=== PATIENT | male | born 1990 | race American Indian/Alaskan Native ===

== ENCOUNTER 2017-03-01 14:31 | Emergency (ER) | payer OTHER ==
[2017-03-01] MEDS ORDERED: Naproxen 550 mg Tab PO STA (15:03)
[2017-03-01] MEDS ORDERED: Albuterol 0.083% Inhal Sol (2.5 mg/3 mL) UD IH STA (15:03)
[2017-03-01] MEDS ORDERED: Albuterol 0.083% Inhal Sol (2.5 mg/3 mL) UD ONE (15:08)
[2017-03-01] MEDS ORDERED: Naproxen 550 mg Tab PO ONE (15:08)
--- NOTE | 2017-03-01 16:08 | C.PDOC ---
History Of Present Illness 26 year old patient presents to the ED complaining of intermittent fever, non- productive cough, runny nose and sore throat. He notes he has sick contacts at home with similar symptoms. Patient also complains of occasional shortness of breath. He denies chest pain, abdominal pain, nausea, vomiting, diarrhea, dysuria/hematuria. Time Seen by Provider: 03/01/17 14:40 Chief Complaint (Nursing): Fever History Per: Patient History/Exam Limitations: no limitations Onset/Duration Of Symptoms: Intermittent Episodes Current Symptoms Are (Timing): Still Present Location Of Pain: Throat Sick Contacts (Context): Family Member(s) Associated Symptoms: Fever, Sore Throat, Cough Ear Symptoms: Bilateral: None Severity: Mild Past Medical History Reviewed: Historical Data, Nursing Documentation, Vital Signs Vital Signs: Last Vital Signs Temp 99.7 F H 03/01/17 16:09 Pulse 116 H 03/01/17 16:09 Resp 20 03/01/17 16:09 BP 135/84 03/01/17 16:09 Pulse Ox 97 03/01/17 17:26 - Medical History PMH: No Chronic Diseases Family History: States: No Known Family Hx - Social History Hx Alcohol Use: No Hx Substance Use: No - Immunization History Hx Tetanus Toxoid Vaccination: No Hx Influenza Vaccination: No Hx Pneumococcal Vaccination: No Review Of Systems Except As Marked, All Systems Reviewed And Found Negative. Constitutional: Positive for: Fever ENT: Positive for: Nose Congestion, Throat Pain Cardiovascular: Negative for: Chest Pain, Palpitations Respiratory: Positive for: Cough (non-productive), Shortness of Breath ( occasional ) Gastrointestinal: Negative for: Nausea, Vomiting, Abdominal Pain, Diarrhea Skin: Negative for: Rash Physical Exam - Physical Exam Appears: Well, Non-toxic, No Acute Distress Skin: Warm, Dry Head: Normacephalic Eye(s): bilateral: Normal Inspection Ear(s): Bilateral: Normal Oral Mucosa: Moist Throat: Erythema (mild pharyngeal), No Exudate, No Drooling Neck: Normal ROM, Supple, Other (NO MENINGISMUS) Chest: Symmetrical Cardiovascular: Rhythm Regular (mildly tachycardic) Respiratory: Normal Breath Sounds, No Rales, No Rhonchi, No Wheezing, Other ( speaking in complete sentences; decreased air entry B/L) Gastrointestinal/Abdominal: Normal Exam, Bowel Sounds, Soft, No Tenderness Back: Normal Inspection Extremity: Normal ROM Neurological/Psych: Oriented x3 Gait: Steady ED Course And Treatment O2 Sat by Pulse Oximetry: 97 (room air) Pulse Ox Interpretation: Normal Progress Note: Patient given PO naprosyn, PO tessalon and albuterol treatment. Reevaluation Time: 16:20 Reassessment Condition: Improved (On reassessment, patient is resting comfortably and states he feels better. On exam, he has good air entry B/L without wheezing or accessory muscle use. Poc 97-98% on RA, and fever has dropped appropriately. Patient comfortable being dicharged home, was given Rxs for albuterol inhaler, naprosyn and tessalon perles, and instructed to follow up with PMD/clinic in 1-2 days. He understands he should return to ED if symptoms worsen.) Disposition Counseled Patient/Family Regarding: Studies Performed, Diagnosis, Need For Followup, Rx Given - Disposition Referrals: [facility] at [facility] [Outside] Disposition: HOME/ ROUTINE Disposition Time: 16:20 Condition: STABLE Additional Instructions: FOLLOW UP WITH YOUR DOCTOR IN 1-2 DAYS USE MEDICATIONS DIRECTED RETURN TO EMERGENCY ROOM IF SYMPTOMS WORSEN Prescriptions: Albuterol HFA [Ventolin HFA 90 mcg/actuation (8 g)] 0.09 mg IH Q4 PRN #1 puff PRN Reason: Wheezing Benzonatate [Tessalon Perles] 100 mg PO BID PRN #15 sgl PRN Reason: Cough Naproxen [Naprosyn Tab] 375 mg PO BID PRN #20 tab PRN Reason: pain Instructions: Upper Respiratory Infection (ED), Viral Syndrome (ED) Print Language: SAUDI ARABIAN - POA Present On Arrival: None - Clinical Impression Clinical Impression: Upper respiratory infection, Acute bronchospasm - Scribe Statement The provider has reviewed the documentation as recorded by the Johnnyibkay Pandya Provider Attestation: All medical record entries made by the Scribe were at my direction and personally dictated by me. I have reviewed the chart and agree that the record accurately reflects my personal performance of the history, physical exam, medical decision making, and the department course for this patient. I have also personally directed, reviewed, and agree with the discharge instructions and disposition.
[2017-03-01 16:09] VITALS: BP 135/84; PULSE 116; RESP 20; TEMP 99.7
[2017-03-01 16:12] VITALS: O2SAT 97
== END 2017-03-01 16:27 | disposition home or self-care (01) ==
LOC: C.ER 14:31
DX: J06.9 Acute upper respiratory infection, unspecified (principal); J98.01 Acute bronchospasm

== ENCOUNTER 2017-11-02 16:54 | Emergency (ER) | payer SELFPAY ==
--- NOTE | 2017-11-02 17:24 | C.PDOC ---
History Of Present Illness Patient complains of pain started 30 minutes ago to left lower abdomen. He states the pain radiates into the groin and he took Tylenol prior to arrival. At time of onset pain it was 7/10 on pain scale and described as twisting pain. Upon arrival to ED pain has mostly resolved it is now almost completely gone. Patient denies any nausea, vomiting, dysuria, diarrhea, constipation. Time Seen by Provider: 11/02/17 17:08 Chief Complaint (Nursing): Abdominal Pain History Per: Patient History/Exam Limitations: no limitations Onset/Duration Of Symptoms: Mins (30), Sudden Onset Current Symptoms Are (Timing): Better Severity: Moderate Location Of Pain/Discomfort: LLQ Radiation Of Pain To:: Other (groin) Quality Of Discomfort: "Pain" Exacerbating Factors: None Alleviating Factors: OTC Meds Last Bowel Movement: Today Past Medical History Reviewed: Historical Data, Nursing Documentation, Vital Signs Vital Signs: Last Vital Signs Temp 97.7 F 11/02/17 17:00 Pulse 79 11/02/17 17:00 Resp 18 11/02/17 17:00 BP 124/81 11/02/17 17:00 Pulse Ox 100 11/02/17 18:28 - Medical History PMH: No Chronic Diseases Surgical History: No Surg Hx Family History: States: Unknown Family Hx - Social History Hx Alcohol Use: No Hx Substance Use: No - Immunization History Hx Tetanus Toxoid Vaccination: No Hx Influenza Vaccination: No Hx Pneumococcal Vaccination: No Review Of Systems Except As Marked, All Systems Reviewed And Found Negative. Gastrointestinal: Positive for: Abdominal Pain Physical Exam - Physical Exam Appears: Non-toxic, No Acute Distress Skin: Warm, Dry, No Diaphoretic, Other (erythematous macular rash and excoriation to left lower abdomen) Head: Atraumatic, Normacephalic Eye(s): bilateral: Normal Inspection, EOMI Nose: Normal Oral Mucosa: Moist Neck: Normal ROM Chest: Symmetrical Cardiovascular: Rhythm Regular, No Murmur Respiratory: Normal Breath Sounds, No Rhonchi, No Wheezing Gastrointestinal/Abdominal: Bowel Sounds, Soft, No Tenderness, No Mass, No Distention, No Guarding, No Hernia Back: Normal Inspection, No CVA Tenderness, No Vertebral Tenderness, No Paraspinal Tenderness Male Genital: Normal Inspection, No Testicular Tenderness, No Testicular Swelling, No Inguinal Tenderness, No Scrotal Swelling, Circumcised Extremity: Bilateral: Atraumatic, Normal Color And Temperature, Normal ROM Neurological/Psych: Oriented x3, Normal Speech Gait: Steady ED Course And Treatment - Laboratory Results Result Diagrams: 11/02/17 17:47 O2 Sat by Pulse Oximetry: 100 - CT Scan/US Testicular US Other Rad Studies (CT/US): Read By Radiologist, Radiology Report Reviewed CT/US Interpretation: Energy Consultant : Jesica Mejia MD. Approver2 : Report Date : 11/02/2017 18:24:21. My Comment : . HISTORY: left side pain onset 30 minutes. TECHNIQUE: Realtime sonography through the scrotum with color and doppler flow. COMPARISON: None Available. FINDINGS: RIGHT TESTICLE: Measures 4.3 x 2.2 x 3.1 cm. Homogeneous echotexture. Blood flow is demonstrated. RIGHT EPIDIDYMIS: Epididymal cyst measuring approximately 6 mm and 5 mm. LEFT TESTICLE: Measures 4.5 x 1.8 x 2.8 cm. Homogeneous echotexture. Blood flow is demonstrated. LEFT EPIDIDYMIS: There are two epididymal cysts measuring approximately 5 mm each. HYDROCELE: None. VARICOCELE: Left-sided varicocele. OTHER FINDINGS: None. IMPRESSION: Bilateral epididymal cysts. Left-sided varicocele. Medical Decision Making Medical Decision Making: Impression: LLQ pain radiates to groin Plan: * Labs * UA * US Progress: CBC shows no leukocytosis, bands or shift UA WNL US shows Bilateral epididymal cysts. Left-sided varicocele. On re-evaluation, patient reports feeling much better. He has no pain in abdomen or groin, area is soft. He has no fever and stable vital signs. I explained US results and provide copy of results. Advise follow up with PCP and urologist for further evaluation. Disposition Counseled Patient/Family Regarding: Studies Performed, Diagnosis, Need For Followup - Disposition Referrals: Kizzy Cristobal MD [Staff Provider] - [facility] [Outside] [facility] [Outside] Disposition: HOME/ ROUTINE Disposition Time: 18:50 Condition: STABLE Additional Instructions: Please follow up with your primary doctor or with urologist for further evaluation. Take Motrin or Tylenol for any pain. Return to the emergency department at any time if symptoms persist or worsen. Instructions: Varicocele (ED) Forms: [employer] (Macanese) - POA Present On Arrival: None - Clinical Impression Clinical Impression: Left varicocele, Epididymal cyst
[2017-11-02 17:40] LABS: URINE AMORPHOUS SEDIMENT RARE /ul (<OCC); URINE BILIRUBIN NEGATIVE (NEGATIVE); URINE BLOOD NEGATIVE (NEGATIVE); URINE CLARITY Hazy (Clear); URINE COLOR Yellow (YELLOW); URINE GLUCOSE (UA) NORMAL (Normal); URINE LEUKOCYTE ESTERASE NEG Leu/uL (Negative); URINE NITRATE NEGATIVE (NEGATIVE); URINE PROTEIN NEGATIVE (NEGATIVE); URINE UROBILINOGEN NORMAL mg/dL (0.2-1.0)
[2017-11-02 17:52] LABS: BASO % 0.3 % (0.0-2.0); EOS # 0.1 K/uL (0.0-0.7); EOS % 0.9 % (0.0-4.0); HEMOGLOBIN 14.9 g/dL (12.0-18.0); LYMPH % 12.4 % (20.0-40.0); MEAN CORPUSCULAR HEMOGLOBIN 26.3 pg (27.0-31.0); MEAN CORPUSCULAR HGB CONC 32.5 g/dL (33.0-37.0); MEAN PLATELET VOLUME 8.2 fL (7.2-11.7); MONO # 0.6 K/uL (0.0-0.8); MONO % 6.7 % (0.0-10.0); NEUT # 6.6 K/uL (1.8-7.0); NEUT % 79.7 % (50.0-75.0); NRBC % 0.1 % (0.0-2.0); RBC 5.64 Mil/uL (4.40-5.90); RED CELL DISTRIBUTION WIDTH 13.6 % (11.5-14.5); WHITE BLOOD COUNT 8.3 K/uL (4.8-10.8)
--- NOTE | 2017-11-02 18:25 | US ---
HISTORY: left side pain onset 30 minutes TECHNIQUE: Realtime sonography through the scrotum with color and doppler flow. COMPARISON: None Available. FINDINGS: RIGHT TESTICLE: Measures 4.3 x 2.2 x 3.1 cm. Homogeneous echotexture. Blood flow is demonstrated. RIGHT EPIDIDYMIS: Epididymal cyst measuring approximately 6 mm and 5 mm. LEFT TESTICLE: Measures 4.5 x 1.8 x 2.8 cm. Homogeneous echotexture. Blood flow is demonstrated. LEFT EPIDIDYMIS: There are two epididymal cysts measuring approximately 5 mm each. HYDROCELE: None. VARICOCELE: Left-sided varicocele. OTHER FINDINGS: None. IMPRESSION: Bilateral epididymal cysts. Left-sided varicocele.
[2017-11-02 18:49] LABS: ALB/GLOB RATIO 1.4 (1.0-2.1); ALBUMIN 4.3 g/dL (3.5-5.0); ALT/SGPT 56 U/L (21-72); AST/SGOT 29 U/L (17-59); BLOOD UREA NITROGEN 10 mg/dL (9-20); CALCIUM 8.6 mg/dl (8.6-10.4); GFR AFRICAN-AMERICAN > 60; GFR NON-AFRICAN AMERICAN > 60
[2017-11-02 18:57] VITALS: BP 114/74; PULSE 104; RESP 20; TEMP 98.5
[2017-11-02 22:18] VITALS: O2SAT 100
== END 2017-11-02 18:58 | disposition home or self-care (01) ==
LOC: C.ER 16:54
DX: I86.1 Scrotal varices (principal); N50.3 Cyst of epididymis

== ENCOUNTER 2018-03-25 23:18 | Emergency (ER) | payer SELFPAY ==
[2018-03-25 23:26] VITALS: RESP 14; O2SAT 99
[2018-03-25] MEDS ORDERED: Sodium Chloride 0.9% 1,000 ML IV ONE (23:37)
[2018-03-25] MEDS ORDERED: Sodium Chloride 0.9% 1,000 ML ONE (23:51)
[2018-03-26 00:02] LABS: EOS # 0.1 K/uL (0.0-0.7); EOS % 1.9 % (0.0-4.0); MEAN CORPUSCULAR HEMOGLOBIN 27.9 pg (27.0-31.0); MONO # 0.6 K/uL (0.0-0.8); NEUT # 3.8 K/uL (1.8-7.0); WHITE BLOOD COUNT 6.5 K/uL (4.8-10.8)
[2018-03-26 00:13] LABS: BASO % 0.3 % (0.0-2.0); HEMOGLOBIN 14.8 g/dL (12.0-18.0); LYMPH # 2.1 K/uL (1.0-4.3); LYMPH % 31.3 % (20.0-40.0); MEAN CELL VOLUME 80.3 fL (80.0-94.0); MEAN CORPUSCULAR HGB CONC 34.7 g/dL (33.0-37.0); MEAN PLATELET VOLUME 8.5 fL (7.2-11.7); MONO % 8.9 % (0.0-10.0); NEUT % 57.6 % (50.0-75.0); RBC 5.3 Mil/uL (4.40-5.90); RED CELL DISTRIBUTION WIDTH 13.3 % (11.5-14.5)
[2018-03-26 00:14] LABS: ALB/GLOB RATIO 1.4 (1.0-2.1); ALT/SGPT 25 U/L (21-72); AST/SGOT 21 U/L (17-59); BLOOD UREA NITROGEN 16 mg/dL (9-20); CALCIUM 8.8 mg/dl (8.6-10.4); GFR AFRICAN-AMERICAN > 60; GFR NON-AFRICAN AMERICAN > 60; LIPASE 61 U/L (23-300)
--- NOTE | 2018-03-26 00:47 | C.PDOC ---
History Of Present Illness <Gamaliel Sepulveda - Last Filed: 03/26/18 00:46> <Evelia Frank - Last Filed: 03/26/18 04:36> 27 year old male presents to the emergency department with complaints of left flank pain radiating to his groin for one hour [employer]. Patient denies urinary symptoms, nausea, vomiting, fever, chills, or testicular pain. (Evelia Frank) <Gamaliel Sepulveda - Last Filed: 03/26/18 00:46> History Per: Patient History/Exam Limitations: no limitations Onset/Duration Of Symptoms: Hrs Current Symptoms Are (Timing): Still Present Quality Of Discomfort: Sharp, "Pain" Associated Symptoms: denies: Fever, Chills, Nausea, Vomiting, Other (testicular pain) <Evelia Frank - Last Filed: 03/26/18 04:36> Time Seen by Provider: 03/25/18 23:36 Chief Complaint (Nursing): Male Genitourinary Past Medical History Family History: States: Unknown Family Hx - Social History Hx Alcohol Use: No Hx Substance Use: No - Immunization History Hx Tetanus Toxoid Vaccination: No Hx Influenza Vaccination: No Hx Pneumococcal Vaccination: No <Gamaliel Sepulveda M - Last Filed: 03/26/18 00:46> Reviewed: Historical Data, Nursing Documentation, Vital Signs - Medical History PMH: No Chronic Diseases <Evelia Frank - Last Filed: 03/26/18 04:36> Vital Signs: Last Vital Signs Temp 98 F 03/26/18 03:01 Pulse 80 03/26/18 03:01 Resp 14 03/26/18 03:01 BP 120/80 03/26/18 03:01 Pulse Ox 99 03/26/18 03:01 Review Of Systems Gastrointestinal: Positive for: Abdominal Pain Musculoskeletal: Positive for: Back Pain (flank pain) <Evelia Frank - Last Filed: 03/26/18 04:36> Physical Exam - Physical Exam Appears: Non-toxic, In Acute Distress Skin: Warm, Dry Head: Atraumatic, Normacephalic Eye(s): bilateral: Normal Inspection Oral Mucosa: Moist Neck: Supple Chest: Symmetrical Cardiovascular: Rhythm Regular Respiratory: Normal Breath Sounds, No Rales, No Rhonchi, No Wheezing Gastrointestinal/Abdominal: Soft, Tenderness (LLQ tenderness) Back: CVA Tenderness Neurological/Psych: Oriented x3 <Evelia Frankony - Last Filed: 03/26/18 04:36> ED Course And Treatment - Laboratory Results Result Diagrams: 03/25/18 23:59 03/25/18 23:59 O2 Sat by Pulse Oximetry: 99 <Gamaliel Sepulveda Ernesto - Last Filed: 03/26/18 00:46> - Laboratory Results Result Diagrams: 03/25/18 23:59 03/25/18 23:59 Pulse Ox Interpretation: Normal - CT Scan/US CT Abdomen/Pelvis Other Rad Studies (CT/US): Read By Radiologist, Radiology Report Reviewed CT/US Interpretation: IMPRESSION: 1. There is left-sided extrarenal pelvis with severe left. hydroureteronephrosis and a 8 mm left distal ureteral stone seen on image 159. series 3 representing acute obstructive uropathy. Correlation with internal medicine evaluation and further workup or followup as. recommended by patient's clinical data. <Evelia Frank - Last Filed: 03/26/18 04:36> Medical Decision Making <Gamaliel Sepulveda - Last Filed: 03/26/18 00:46> <Evelia Frank - Last Filed: 03/26/18 04:36> Medical Decision Making: Plan: CT Abdomen and Pelvis w/o Contrast CMP Lipase CBC NaCl IV Fluids Toradol 30mg IVP Urine Culture Urinalysis 02:[address] Kizzy Cristobal who did not pick up worker, rather his voicemail said to call Dr. Fernandes 02:[address] Fernandes, who did not pick up worker the phone either. (Evelia Frank) Disposition <Gamaliel Sepulveda - Last Filed: 03/26/18 00:46> - Disposition Disposition Time: 04:35 <Evelia Frank - Last Filed: 03/26/18 04:36> - Disposition Referrals: Kizzy Cristobal MD [Staff Provider] - Disposition: HOME/ ROUTINE Condition: FAIR Additional Instructions: return for fever,intractable pain or inability to keep down Vance cristobal on Tuesday Prescriptions: Ciprofloxacin HCl [Cipro] 500 mg PO BID #14 tablet Ciprofloxacin HCl [Cipro] 500 mg PO BID #14 tab oxyCODONE/Acetaminophen [Percocet 5/325 mg Tab] 1 ea PO QID #12 tab Tamsulosin [Flomax] 0.4 mg PO DAILY #5 cap Instructions: Renal Colic Forms: [employer] (Bulgarian) Print Language: ETHIOPIAN - Clinical Impression Clinical Impression: Renal colic on left side <Gamaliel Sepulveda - Last Filed: 03/26/18 00:46> - Scribe Statement The provider has reviewed the documentation as recorded by the Scribe (Shmuel Olvin) <Evelia Frank - Last Filed: 03/26/18 04:36> - Scribe Statement All medical record entries made by the Scribe were at my direction and personally dictated by me. I have reviewed the chart and agree that the record accurately reflects my personal performance of the history, physical exam, medical decision making, and the department course for this patient. I have also personally directed, reviewed, and agree with the discharge instructions and disposition. (Evelia Frank) Physician Patient Turnover Patient Signed Over To: Evelia Frank Handoff Comments: pending ct scan, labs, reevaluation and disposition <Gamaliel Sepulveda - Last Filed: 03/26/18 00:46>
--- NOTE | 2018-03-26 01:23 | CT ---
EXAM: CT Abdomen and Pelvis Without Intravenous Contrast CLINICAL HISTORY: 27 years old, male; Pain; Abdominal pain; Flank; Other: Pt also states the right hurts; Patient HX: No prior CT; Additional info: Left flank pain TECHNIQUE: Axial computed tomography images of the abdomen and pelvis without intravenous contrast. All CT scans at this facility use one or more dose reduction techniques, viz.: automated exposure control; ma/kV adjustment per patient size (including targeted exams where dose is matched to indication; i.e. head); or iterative reconstruction technique. 641 images are submitted. Axial images are submitted in soft tissue and lung windows. Coronal and sagittal reformatted images were created and reviewed. Axial reformatted images were created and reviewed. COMPARISON: No relevant prior studies available. FINDINGS: Limitations: Absence of IV contrast decreases sensitivity for detecting vascular and visceral injury and abnormality. Lung bases: Unremarkable. No mass. No consolidation. Mediastinum: Possible small hiatal hernia. ABDOMEN: Liver: Unremarkable. Gallbladder and bile ducts: Contracted gallbladder with gallbladder wall thickening. Pancreas: Unremarkable. No ductal dilation. Spleen: Unremarkable. No splenomegaly. Adrenals: Unremarkable. No mass. Kidneys and ureters: There is left-sided extrarenal pelvis with severe left hydroureteronephrosis and a 8 mm left distal ureteral stone seen on image 159 series 3 representing acute obstructive uropathy. Right-sided extrarenal pelvis with mild distention. No right renal stones. Subcentimeter left renal cyst. Stomach and bowel: Moderate amount of stool in the colon. No obstruction. No mucosal thickening. PELVIS: Appendix: Suboptimally seen normal caliber appendix. Bladder: Partially decompressed bladder with bladder wall thickening. Correlation with urinalysis is recommended only if clinical cystitis is suspected. Reproductive: Mild enlargement of prostate gland with calcification for patient's age. ABDOMEN and PELVIS: Intraperitoneal space: Unremarkable. No free air. No significant fluid collection. Bones/joints: No acute fracture. No dislocation. Soft tissues: Unremarkable. Vasculature: The aorta is normal in caliber and there are no diogo-aortic collections. Lymph nodes: Unremarkable. No enlarged lymph nodes. IMPRESSION: 1. There is left-sided extrarenal pelvis with severe left hydroureteronephrosis and a 8 mm left distal ureteral stone seen on image 159 series 3 representing acute obstructive uropathy. Correlation with internal medicine evaluation and further workup or followup as recommended by patient's clinical data.
[2018-03-26 01:59] LABS: URINE BILIRUBIN NEGATIVE (NEGATIVE); URINE BLOOD 2+ (NEGATIVE); URINE CLARITY Clear (Clear); URINE COLOR Yellow (YELLOW); URINE GLUCOSE (UA) NORMAL (Normal); URINE HYALINE CAST 0-2 /lpf (0-2); URINE LEUKOCYTE ESTERASE NEG Leu/uL (Negative); URINE PROTEIN NEGATIVE (NEGATIVE); URINE UROBILINOGEN NORMAL mg/dL (0.2-1.0)
[2018-03-26 03:02] VITALS: BP 120/80; PULSE 80; TEMP 98
== END 2018-03-26 03:02 | disposition home or self-care (01) ==
LOC: C.ER 23:18
DX: N23 Unspecified renal colic (principal)
CPT/HCPCS: 74176; 80053; 81001; 83690; 85025; 96361; 96374; 99284; J1885; J7030

== ENCOUNTER 2018-06-13 22:18 | Emergency (ER) | payer SELFPAY ==
[2018-06-13 22:38] VITALS: PULSE 70; RESP 20; TEMP 98.3
--- NOTE | 2018-06-13 23:24 | C.PDOC ---
History Of Present Illness Patient with history of renal stones, comes to ER complaining of bilateral lower back pain, left > right for the past 1.5 hours. Patient states since his last ER visit, he has been taking Flomax but has not followed up with a urologist. Otherwise, denies any fever, chills, nausea, vomiting, dysuria or hematuria. Time Seen by Provider: 06/13/18 23:23 Chief Complaint (Nursing): Back Pain History Per: Patient History/Exam Limitations: no limitations Onset/Duration Of Symptoms: Hrs (1.5) Current Symptoms Are (Timing): Still Present Quality Of Discomfort: "Pain" Associated Symptoms: denies: Incontinence, New Weakness, New Numbness Additional History Per: Patient Past Medical History Reviewed: Historical Data, Nursing Documentation, Vital Signs Vital Signs: Last Vital Signs Temp 98.3 F 06/13/18 22:33 Pulse 70 06/13/18 22:33 Resp 20 06/13/18 22:33 BP 132/92 H 06/13/18 22:33 Pulse Ox 98 06/13/18 23:35 - Medical History PMH: Kidney Stones Surgical History: No Surg Hx Family History: States: No Known Family Hx - Social History Hx Alcohol Use: No Hx Substance Use: No - Immunization History Hx Tetanus Toxoid Vaccination: No Hx Influenza Vaccination: No Hx Pneumococcal Vaccination: No Review Of Systems Constitutional: Negative for: Fever, Chills Gastrointestinal: Negative for: Vomiting Genitourinary: Negative for: Dysuria, Hematuria Musculoskeletal: Positive for: Back Pain Physical Exam - Physical Exam Appears: Non-toxic Skin: Warm, Dry Head: Atraumatic Eye(s): bilateral: Normal Inspection Oral Mucosa: Moist Neck: Supple Chest: Symmetrical Cardiovascular: Rhythm Regular Respiratory: No Rales, No Rhonchi, No Wheezing Gastrointestinal/Abdominal: Soft, No Tenderness, No Guarding, No Rebound Back: CVA Tenderness (left), No Vertebral Tenderness, No Paraspinal Tenderness Extremity: Normal ROM Neurological/Psych: Oriented x3 ED Course And Treatment - Laboratory Results Result Diagrams: 06/14/18 00:54 06/14/18 00:54 O2 Sat by Pulse Oximetry: 98 (RA) Pulse Ox Interpretation: Normal Progress Note: Urinalysis ordered. Patient given Motrin and Flomax PO. Reevaluation Time: 01:51 Reassessment Condition: Improved Disposition Counseled Patient/Family Regarding: Studies Performed, Diagnosis, Need For Followup, Rx Given - Disposition Referrals: Antelmo Machuca MD [Staff Provider] - Disposition: HOME/ ROUTINE Disposition Time: 23:24 Condition: FAIR Additional Instructions: Please follow up with the urologist Prescriptions: Tamsulosin [Flomax] 0.4 mg PO DAILY #15 cap traMADol [Ultram] 50 mg PO TID PRN #15 tab PRN Reason: Pain, Severe (8-10) Instructions: Renal Colic (DC) Forms: [employer] (Cape Verdean) - Clinical Impression Clinical Impression: Renal colic on left side - Scribe Statement The provider has reviewed the documentation as recorded by the Daniel Fritz Provider Attestation: All medical record entries made by the Daniel were at my direction and personally dictated by me. I have reviewed the chart and agree that the record accurately reflects my personal performance of the history, physical exam, medical decision making, and the department course for this patient. I have also personally directed, reviewed, and agree with the discharge instructions and disposition.
[2018-06-14 00:11] LABS: URINE BILIRUBIN NEGATIVE (NEGATIVE); URINE BLOOD 2+ (NEGATIVE); URINE CLARITY Clear (Clear); URINE COLOR Straw (YELLOW); URINE GLUCOSE (UA) NORMAL (Normal); URINE LEUKOCYTE ESTERASE NEG Leu/uL (Negative); URINE PROTEIN NEGATIVE (NEGATIVE); URINE UROBILINOGEN NORMAL mg/dL (0.2-1.0)
[2018-06-14] MEDS ORDERED: Sodium Chloride 0.9% 1,000 ML IV ONE (00:31)
[2018-06-14 00:59] LABS: BASO % 0.4 % (0.0-2.0); EOS # 0.1 K/uL (0.0-0.7); HEMOGLOBIN 14.1 g/dL (12.0-18.0); LYMPH # 1.2 K/uL (1.0-4.3); LYMPH % 17.1 % (20.0-40.0); MEAN CORPUSCULAR HEMOGLOBIN 27.9 pg (27.0-31.0); MEAN PLATELET VOLUME 8.4 fL (7.2-11.7); MONO # 0.7 K/uL (0.0-0.8); NEUT # 5.2 K/uL (1.8-7.0); NEUT % 71.5 % (50.0-75.0); NRBC % 0.2 % (0.0-2.0); RBC 5.05 Mil/uL (4.40-5.90); WHITE BLOOD COUNT 7.3 K/uL (4.8-10.8)
[2018-06-14 01:17] LABS: ALB/GLOB RATIO 1.5 (1.0-2.1); ALT/SGPT 37 U/L (21-72); AST/SGOT 20 U/L (17-59); BLOOD UREA NITROGEN 14 mg/dL (9-20); CALCIUM 10.1 mg/dl (8.6-10.4); GFR NON-AFRICAN AMERICAN > 60
[2018-06-14 02:08] VITALS: BP 142/75; O2SAT 100
== END 2018-06-14 02:07 | disposition home or self-care (01) ==
LOC: C.ER 22:18
DX: N23 Unspecified renal colic (principal)
CPT/HCPCS: 80053; 81001; 85025; 99284; J7030

== ENCOUNTER 2018-09-25 21:44 | Emergency (ER) | payer SELFPAY ==
[2018-09-25 21:55] VITALS: RESP 20
[2018-09-25] MEDS ORDERED: Sodium Chloride 0.9% 1,000 ML IV ONE (22:59)
--- NOTE | 2018-09-25 22:59 | C.PDOC ---
History Of Present Illness patient with history of kidney stones, presents with similar pain. Left flank worse that right. Some nausea and vomiting. Sharp stabbing cva tenderness. No dysuria. tolerating po Time Seen by Provider: 09/25/18 22:59 Chief Complaint (Nursing): Abdominal Pain History Per: Patient History/Exam Limitations: no limitations Onset/Duration Of Symptoms: Days Current Symptoms Are (Timing): Still Present Context: Other Severity: Moderate Pain Scale Rating Of: 4 Location Of Pain/Discomfort: Other (b/l cva) Radiation Of Pain To:: Back Quality Of Discomfort: Sharp, Stabbing Associated Symptoms: Nausea, Vomiting. denies: Fever, Chills Exacerbating Factors: None Alleviating Factors: None Last Bowel Movement: Today Recent travel outside of the [place] States: No Additional History Per: Family Past Medical History Reviewed: Historical Data, Nursing Documentation, Vital Signs Vital Signs: Last Vital Signs Temp 98.4 F 09/25/18 21:50 Pulse 86 09/25/18 21:50 Resp 20 09/25/18 21:50 BP 126/70 09/25/18 21:50 Pulse Ox 100 09/25/18 21:50 - Medical History PMH: Kidney Stones Family History: States: No Known Family Hx - Social History Hx Alcohol Use: No Hx Substance Use: No - Immunization History Hx Tetanus Toxoid Vaccination: No Hx Influenza Vaccination: No Hx Pneumococcal Vaccination: No Review Of Systems Constitutional: Negative for: Fever, Chills ENT: Negative for: Throat Pain Cardiovascular: Negative for: Chest Pain Respiratory: Negative for: Shortness of Breath Gastrointestinal: Positive for: Nausea, Abdominal Pain Genitourinary: Negative for: Dysuria Musculoskeletal: Positive for: Back Pain Skin: Negative for: Rash Neurological: Negative for: Weakness Psych: Negative for: Anxiety Physical Exam - Physical Exam Appears: Non-toxic Skin: Warm, Dry Oral Mucosa: Moist Chest: Symmetrical Cardiovascular: Rhythm Regular Respiratory: No Rales, No Rhonchi, No Wheezing Gastrointestinal/Abdominal: Soft, Tenderness (b/l cva), No Distention, No Guarding Back: CVA Tenderness (b/l) Extremity: Normal ROM Extremity: Bilateral: Atraumatic Neurological/Psych: Oriented x3 Gait: Steady ED Course And Treatment - Laboratory Results Result Diagrams: 09/25/18 23:07 09/25/18 23:07 O2 Sat by Pulse Oximetry: 100 Pulse Ox Interpretation: Normal Reevaluation Time: 01:07 Reassessment Condition: Improved Disposition Counseled Patient/Family Regarding: Studies Performed, Diagnosis, Need For Followup, Rx Given - Disposition Referrals: [facility] [Outside] [facility] [Outside] Antelmo Machuca MD [Staff Provider] - Disposition: HOME/ ROUTINE Disposition Time: 22:59 Condition: FAIR Additional Instructions: Please return if symptoms recur Prescriptions: Ondansetron ODT [Zofran ODT] 1 odt PO BID PRN #10 odt PRN Reason: Nausea/Vomiting traMADol [Ultram] 50 mg PO QID PRN #20 tab PRN Reason: Pain, Severe (8-10) Instructions: Kidney Stones (DC), Renal Colic (DC) Forms: [employer] (Gabonese) - Clinical Impression Clinical Impression: Renal colic on left side, Kidney stone on left side
[2018-09-25] MEDS ORDERED: Sodium Chloride 0.9% 1,000 ML ONE (23:03)
[2018-09-25 23:12] LABS: BASO # 0.1 K/uL (0.0-0.2); BASO % 0.6 % (0.0-2.0); EOS # 0.1 K/uL (0.0-0.7); EOS % 0.7 % (0.0-4.0); HEMOGLOBIN 14.9 g/dL (12.0-18.0); LYMPH # 1.3 K/uL (1.0-4.3); LYMPH % 12.9 % (20.0-40.0); MEAN CELL VOLUME 81.8 fL (80.0-94.0); MEAN CORPUSCULAR HEMOGLOBIN 27.6 pg (27.0-31.0); MEAN CORPUSCULAR HGB CONC 33.8 g/dL (33.0-37.0); MEAN PLATELET VOLUME 8.9 fL (7.2-11.7); MONO # 0.8 K/uL (0.0-0.8); MONO % 7.7 % (0.0-10.0); NEUT % 78.1 % (50.0-75.0); RBC 5.39 Mil/uL (4.40-5.90); WHITE BLOOD COUNT 10.3 K/uL (4.8-10.8)
[2018-09-25 23:16] LABS: URINE BACTERIA OCC (<OCC); URINE BILIRUBIN NEGATIVE (NEGATIVE); URINE BLOOD 1+ (NEGATIVE); URINE CLARITY Clear (Clear); URINE COLOR Yellow (YELLOW); URINE GLUCOSE (UA) NORMAL (Normal); URINE LEUKOCYTE ESTERASE TRACE Leu/uL (Negative); URINE PROTEIN NEGATIVE (NEGATIVE); URINE UROBILINOGEN NORMAL mg/dL (0.2-1.0)
[2018-09-25 23:24] LABS: ALB/GLOB RATIO 1.4 (1.0-2.1); ALBUMIN 4.2 g/dL (3.5-5.0); ALT/SGPT 35 U/L (21-72); AST/SGOT 28 U/L (17-59); BLOOD UREA NITROGEN 15 mg/dL (9-20); CALCIUM 9.2 mg/dl (8.6-10.4); GFR NON-AFRICAN AMERICAN > 60; LIPASE 38 U/L (23-300)
[2018-09-26 01:23] VITALS: BP 99/62; PULSE 82; TEMP 98; O2SAT 98
--- NOTE | 2018-09-26 10:43 | CT ---
PROCEDURE: CT Abdomen and Pelvis without Oral or IV contrast. HISTORY: renal colic.,b/l kidney stones COMPARISON: CT abdomen and pelvis without contrast performed 03/26/18 TECHNIQUE: Contiguous axial images of the abdomen and pelvis. No oral or IV contrast administered. Coronal and Sagittal reformats generated and reviewed. Radiation dose: Total exam DLP = 620.6 mGy-cm. This CT exam was performed using one or more of the following dose reduction techniques: Automated exposure control, adjustment of the mA and/or kV according to patient size, and/or use of iterative reconstruction technique. FINDINGS: There is limited evaluation of the solid organs without the administration of IV contrast. LOWER THORAX: No visible consolidation, pleural effusion, or pneumothorax. LIVER: Unremarkable unenhanced appearance. GALLBLADDER AND BILE DUCTS: Unremarkable unenhanced appearance. PANCREAS: Unremarkable unenhanced appearance. SPLEEN: Unremarkable unenhanced appearance. ADRENALS: Unremarkable unenhanced appearance. KIDNEYS AND URETERS: Moderate to severe left-sided hydronephrosis and hydroureter with 8 mm calculus at the distal left ureter just proximal to the UVJ. No right-sided hydronephrosis or hydroureter. BLADDER: Mildly thick-walled urinary bladder likely due to under distension. REPRODUCTIVE: The prostate gland measures approximately 3.2 x 2.8 cm. APPENDIX: The presumed appendix appears within normal limits of caliber. No secondary signs of acute appendicitis. BOWEL: The stomach is nondistended. Lack of oral contrast limits evaluation for bowel pathology. The bowel loops appear within normal limits of caliber without evidence of intestinal obstruction. PERITONEUM: No significant free fluid. No definite free air. LYMPH NODES: No bulky lymphadenopathy identified. VASCULATURE: No atherosclerotic calcification of the aorta. No aortic aneurysm. BONES: No acute osseous abnormality is detected. OTHER FINDINGS: None. IMPRESSION: Moderate to severe left-sided hydronephrosis and hydroureter with 8 mm distal left ureteral calculus just proximal to the UVJ. Preliminary impression was provided by [employer].
== END 2018-09-26 01:23 | disposition home or self-care (01) ==
LOC: C.ER 21:44
DX: N13.2 Hydronephrosis with renal and ureteral calculous obstruction (principal); Z87.442 Personal history of urinary calculi
CPT/HCPCS: 74176; 80053; 81001; 83690; 85025; 96361; 96374; 96375; 99284; C9113; J1885; J2405; J7030